=== PATIENT | female | born 1985 | race Two or more races ===

== ENCOUNTER 2021-08-25 02:42 | Emergency (ER) | payer SELFPAY ==
[~2021-08-25] VITALS: Ht 172.7 cm; Wt 51.3 kg
[2021-08-25 02:46] VITALS: BP 123/86
== END 2021-08-25 06:25 | disposition left against medical advice (07) ==
LOC: ER 02:42
DX: R10.9 Unspecified abdominal pain (principal); Z53.21 Procedure and treatment not carried out due to patient leaving prior to being seen by health care provider